=== PATIENT | male | born 1945 | race Hispanic/Latino ===

== ENCOUNTER 2016-12-16 15:04 | Inpatient (IN) | payer MEDICARE ==
[2016-12-16 15:08] VITALS: BMI 33.2
--- NOTE | 2016-12-16 15:22 | C.PDOC ---
History Of Present Illness 71 y/o male sent by Elaine presents to the ED with complains of chronic back pain. Pt had MRI today, concern for possible dissection of a 3.8cm aortic aneurysm. Pain is unchanged from usual pain, occasionally radiates to right leg. Pt denies incontinence, numbness/weakness, abdominal pain, vomiting or any other complaints. Pt history long standing HTN, well controlled with medications. He is also being treated for a paronychia of the right 5th finger. Time Seen by Provider: 12/16/16 15:11 Chief Complaint (Nursing): Abdominal Pain History Per: Patient History/Exam Limitations: no limitations Onset/Duration Of Symptoms: Days Current Symptoms Are (Timing): Still Present Severity: Moderate Quality Of Discomfort: "Pain" Associated Symptoms: Back Pain. denies: Fever, Vomiting Exacerbating Factors: None Alleviating Factors: None Recent travel outside of the [place]: No Past Medical History Reviewed: Historical Data, Nursing Documentation, Vital Signs Vital Signs: Last Vital Signs Temp 97.4 F L 12/16/16 15:08 Pulse 65 12/16/16 18:16 Resp 17 12/16/16 18:16 BP 149/75 12/16/16 18:16 Pulse Ox 98 12/16/16 18:28 Family History: States: Unknown Family Hx Review Of Systems Except As Marked, All Systems Reviewed And Found Negative. Constitutional: Negative for: Fever Cardiovascular: Negative for: Chest Pain Respiratory: Negative for: Shortness of Breath Gastrointestinal: Negative for: Vomiting, Abdominal Pain Genitourinary: Negative for: Incontinence Musculoskeletal: Positive for: Back Pain (radiating to right leg) Neurological: Negative for: Weakness, Numbness Physical Exam - Physical Exam Appears: Non-toxic, No Acute Distress Skin: Warm, Dry, No Rash Head: Atraumatic, Normacephalic Nose: Normal Neck: Normal ROM, Supple Chest: Symmetrical Cardiovascular: Rhythm Regular, No Murmur Respiratory: Normal Breath Sounds, No Accessory Muscle Use, No Rales, No Rhonchi , No Wheezing Gastrointestinal/Abdominal: No Tenderness, No Mass, Other (rotund) Back: No Vertebral Tenderness, No Paraspinal Tenderness Extremity: Bilateral: Atraumatic Pulses: Left Femoral: Normal, Right Femoral: Normal, Left Dorsalis Pedis: Normal , Right Dorsalis Pedis: Normal Neurological/Psych: Oriented x3, Normal Speech, Normal Motor, Normal Sensation ED Course And Treatment - Laboratory Results Result Diagrams: 12/16/16 15:34 12/16/16 15:34 Lab Interpretation: No Acute Changes O2 Sat by Pulse Oximetry: 98 (on room air) Pulse Ox Interpretation: Normal - CT Scan/US CT angio chest abd and pelvis Other Rad Studies (CT/US): Read By Radiologist, Radiology Report Reviewed CT/US Interpretation: Accession No. : [id number]. Patient Name / ID : SAMY WILKERSON P / [id number]. Exam Date : 12/16/2016 16:58:18 ( Approved ). Study Comment : Sex / Age : M / 71Y. Creator : Tatianna Alcantar. Dictator : Tatianna Alcantar. Auto Engine Mechanic : Glue Specialty Supervisor : Tatianna Alcantar. Approver2 : Report Date : 12/16/2016 18:03:29. My Comment : . PROCEDURE: CT Angiography Chest, Abdomen and Pelvis with and without intravenous contrast. HISTORY: MRI done today, ?dissection abdominal aorta. COMPARISON: None. TECHNIQUE: Contiguous axial images of the chest, abdomen and pelvis were obtained in the phase of aortic enhancement. A noncontrast enhanced CT of the chest was also obtained to evaluate for possible intramural thrombus. Coronal and sagittal reformats were generated. IV dose administered: 100 mL of Visipaque 320. Radiation dose: Total exam DLP = 3006.17 mGy-cm. This CT exam was performed using one or more of the following dose reduction techniques: Automated exposure control, adjustment of the mA and/or kV according to patient size, and/or use of iterative reconstruction technique. FINDINGS: CT ANGIOGRAPHY OF THE CHEST WITH & WITHOUT CONTRAST: AORTA (CHEST AND ABDOMEN): There is aortic dissection extending from the mid descending thoracic aorta to the right common iliac artery. There is suspicious for calcified wall aneurysm at the proximal to mid descending thoracic aorta measures approximately 3.5 centimeter in the largest transverse diameter seen just above the beginning of the dissection. The celiac axis, superior mesenteric artery, inferior mesenteric artery are patent and originate from the true lumen of the aorta. The right renal artery is also patent and originates from the true lumen. The left renal artery originates from the false lumen of the abdominal aorta. The abdominal aortic dissection extending to the right common iliac artery/the right common iliac bifurcation. The left common iliac artery originates from the true lumen.The bilateral external iliac arteries are patent and opacified with contrast. LUNGS: No evidence of acute pulmonary disease. Prominent accessory azygos vein and fissure seen. MEDIASTINUM: Mild to moderate cardiomegaly. Diffuse coronary artery calcifications seen. The main pulmonary artery is normal in size. No evidence of lymphadenopathy. No evidence of pericardial effusion. LYMPH NODES: Unremarkable. PLEURA: Unremarkable. No pneumothorax. No pleural fluid. BONES: Unremarkable. OTHER FINDINGS: None. CT ANGIOGRAPHY OF THE ABDOMEN AND PELVIS WITH CONTRAST: LIVER: No evidence of acute pathology. Moderate fatty liver infiltration is also noted. GALLBLADDER AND BILE DUCTS: Gallstones seen without evidence of acute cholecystitis. PANCREAS: Unremarkable. No gross lesion or ductal dilatation. SPLEEN: Unremarkable. ADRENALS: Unremarkable. No mass. KIDNEYS AND URETERS: Nonspecific bilateral perinephric stranding seen more prominent on the left side. The left kidney demonstrates slight delayed enhancement compared to the right. No evidence of hydronephrosis. VASCULATURE: Abdominal aortic dissection is noted as described above. The IVC is normal in caliber. . STOMACH AND BOWEL: Unremarkable. No obstruction. No gross mural thickening. Colonic diverticulosis seen without evidence of diverticulitis. APPENDIX: No evidence of appendicitis. PERITONEUM: Unremarkable. No free fluid. No free air. LYMPH NODES: Unremarkable. No enlarged lymph nodes. BLADDER: Unremarkable. REPRODUCTIVE: Multiple seeds are seen in the prostate. The prostate is mildly enlarged. BONES: No acute fracture. OTHER FINDINGS: None. IMPRESSION: Large aortic dissection extending from the descending thoracic aorta to the right common iliac bifurcation. Focal aneurysmal changes versus large mural thickening/thrombosis seen at the mid descending thoracic aorta contains peripheral calcification. The left renal artery originates from the false lumen of the aorta. Slight delayed enhancement of the left kidney compared to the right. Findings were discussed with the emergency room physician at the time of this interpretation. - Physician Consult Information Time Consulting Physician Contacted: 18:00 Physician Contacted: Nikky Henry Outcome Of Conversation: CT report discussed. she requests call to Dr Watt. Message left on voice mail. 7:[address] Watt in ED. CT results reviewed and case discussed with Dr Henry. Patient to be admitted for BP control and further evaluation. Medical Decision Making Medical Decision Making: Plan: CTA chest, labs Disposition - Disposition Disposition: HOSPITALIZED Disposition Time: 19:22 Condition: STABLE - POA Present On Arrival: None - Clinical Impression Clinical Impression: Aortic dissection, thoracoabdominal - Scribe Statement The provider has reviewed the documentation as recorded by the Drew Ruby Provider Attestation: All medical record entries made by the Drew were at my direction and personally dictated by me. I have reviewed the chart and agree that the record accurately reflects my personal performance of the history, physical exam, medical decision making, and the department course for this patient. I have also personally directed, reviewed, and agree with the discharge instructions and disposition.
--- NOTE | 2016-12-16 15:23 | C.PDOC ---
Time Seen by Provider: 12/16/16 15:11 Chief Complaint (Nursing): Abdominal Pain Past Medical History Vital Signs: Last Vital Signs Temp 97.4 F L 12/16/16 15:08 Pulse 74 12/16/16 15:08 Resp 20 12/16/16 15:08 BP 157/80 H 12/16/16 15:08 Pulse Ox 98 12/16/16 15:08 ED Course And Treatment O2 Sat by Pulse Oximetry: 98
[2016-12-16 15:43] LABS: BASO % 0.6 % (0.0-2.0); EOS # 0.4 K/uL (0.0-0.7); EOS % 7.2 % (0.0-4.0); HEMATOCRIT 44.4 % (35.0-51.0); LYMPH # 1.1 K/uL (1.0-4.3); LYMPH % 19.9 % (20.0-40.0); MEAN CELL VOLUME 90.8 fL (80.0-94.0); MEAN CORPUSCULAR HEMOGLOBIN 30.2 pg (27.0-31.0); MEAN CORPUSCULAR HGB CONC 33.3 g/dL (33.0-37.0); MEAN PLATELET VOLUME 8.5 fL (7.2-11.7); MONO # 0.6 K/uL (0.0-0.8); MONO % 10.5 % (0.0-10.0); NRBC % 0.1 % (0.0-2.0); RED CELL DISTRIBUTION WIDTH 13.9 % (11.5-14.5); WHITE BLOOD COUNT 5.5 K/uL (4.8-10.8)
[2016-12-16] MEDS ORDERED: ceFAZolin IV 1 gm in Dextrose 50 ML IVPB ONE (15:46)
[2016-12-16] MEDS ORDERED: Sodium Chloride 0.9% 1,000 ML IV ONE (15:46)
[2016-12-16 15:54] LABS: CHLORIDE 101 mmol/L (98-107); SODIUM 140 mmol/L (132-148)
[2016-12-16 15:55] LABS: POTASSIUM 5.1 mmol/L (3.6-5.2)
[2016-12-16 15:57] LABS: ALB/GLOB RATIO 1.7 (1.0-2.1); ALKALINE PHOSPHATASE 69 U/L (38-126); ALT/SGPT 21 U/L (21-72); AST/SGOT 32 U/L (17-59); BILIRUBIN,TOTAL 0.7 mg/dL (0.2-1.3); BLOOD UREA NITROGEN 17 mg/dL (9-20); CARBON DIOXIDE 23 mmol/L (22-30); GFR AFRICAN-AMERICAN > 60; GLUCOSE,RANDOM 167 mg/dL (75-110); TOTAL PROTEIN 7.6 g/dL (6.3-8.3)
[2016-12-16] MEDS ORDERED: Iodixanol 320 MG/ML 100 ML BOTTLE IV ONE (16:10)
[2016-12-16] MEDS ORDERED: ceFAZolin 1 gm FROZEN Premix 50 ML IVPB ONE (16:17)
[2016-12-16] MEDS ORDERED: Sodium Chloride 0.9% 1,000 ML ONE (16:18)
--- NOTE | 2016-12-16 18:05 | CT ---
PROCEDURE: CT Angiography Chest, Abdomen and Pelvis with and without intravenous contrast HISTORY: MRI done today, ?dissection abdominal aorta COMPARISON: None. TECHNIQUE: Contiguous axial images of the chest, abdomen and pelvis were obtained in the phase of aortic enhancement. A noncontrast enhanced CT of the chest was also obtained to evaluate for possible intramural thrombus. Coronal and sagittal reformats were generated. IV dose administered: 100 mL of Visipaque 320 Radiation dose: Total exam DLP = 3006.17 mGy-cm. This CT exam was performed using one or more of the following dose reduction techniques: Automated exposure control, adjustment of the mA and/or kV according to patient size, and/or use of iterative reconstruction technique. FINDINGS: CT ANGIOGRAPHY OF THE CHEST WITH & WITHOUT CONTRAST: AORTA (CHEST AND ABDOMEN): There is aortic dissection extending from the mid descending thoracic aorta to the right common iliac artery. There is suspicious for calcified wall aneurysm at the proximal to mid descending thoracic aorta measures approximately 3.5 centimeter in the largest transverse diameter seen just above the beginning of the dissection. The celiac axis, superior mesenteric artery, inferior mesenteric artery are patent and originate from the true lumen of the aorta. The right renal artery is also patent and originates from the true lumen. The left renal artery originates from the false lumen of the abdominal aorta The abdominal aortic dissection extending to the right common iliac artery/the right common iliac bifurcation. The left common iliac artery originates from the true lumen.The bilateral external iliac arteries are patent and opacified with contrast. LUNGS: No evidence of acute pulmonary disease. Prominent accessory azygos vein and fissure seen. MEDIASTINUM: Mild to moderate cardiomegaly. Diffuse coronary artery calcifications seen. The main pulmonary artery is normal in size. No evidence of lymphadenopathy. No evidence of pericardial effusion. LYMPH NODES: Unremarkable. PLEURA: Unremarkable. No pneumothorax. No pleural fluid. BONES: Unremarkable. OTHER FINDINGS: None. CT ANGIOGRAPHY OF THE ABDOMEN AND PELVIS WITH CONTRAST: LIVER: No evidence of acute pathology. Moderate fatty liver infiltration is also noted. GALLBLADDER AND BILE DUCTS: Gallstones seen without evidence of acute cholecystitis. PANCREAS: Unremarkable. No gross lesion or ductal dilatation. SPLEEN: Unremarkable. ADRENALS: Unremarkable. No mass. KIDNEYS AND URETERS: Nonspecific bilateral perinephric stranding seen more prominent on the left side. The left kidney demonstrates slight delayed enhancement compared to the right. No evidence of hydronephrosis. VASCULATURE: Abdominal aortic dissection is noted as described above. The IVC is normal in caliber. . STOMACH AND BOWEL: Unremarkable. No obstruction. No gross mural thickening. Colonic diverticulosis seen without evidence of diverticulitis. APPENDIX: No evidence of appendicitis. PERITONEUM: Unremarkable. No free fluid. No free air. LYMPH NODES: Unremarkable. No enlarged lymph nodes. BLADDER: Unremarkable. REPRODUCTIVE: Multiple seeds are seen in the prostate. The prostate is mildly enlarged. BONES: No acute fracture. OTHER FINDINGS: None. IMPRESSION: Large aortic dissection extending from the descending thoracic aorta to the right common iliac bifurcation. Focal aneurysmal changes versus large mural thickening/thrombosis seen at the mid descending thoracic aorta contains peripheral calcification. The left renal artery originates from the false lumen of the aorta. Slight delayed enhancement of the left kidney compared to the right. Findings were discussed with the emergency room physician at the time of this interpretation.
[2016-12-16 20:28] VITALS: RESP 20
[2016-12-16] MEDS ORDERED: ceFAZolin IV 1 gm in Dextrose 50 ML IVPB SCH (21:45)
[2016-12-16] MEDS ORDERED: Sodium Chloride 0.45% 1,000 ML IV SCH (22:00)
[2016-12-16] MEDS: (Novolin R) Insulin Human Regular 100 units/ml vial SC SCH (22:07)
[2016-12-16] MEDS: Acetylcysteine 20% Inhal Soln (4ml) PO SCH (22:16)
--- NOTE | 2016-12-16 22:49 | CON ---
DATE: 12/16/2016 An emergency consultation requested by Dr. Henry. The patient is a 71-year-old man seen in the Emergency Room with a history of back pain. After some imaging tests were done for evaluation of this, it was felt that he had an aortic dissection. For th is reason he was referred to the Emergency Room. The patient has recently travelled. He said the pa in has been present for a while. There has been no particular increase in its severity today, krystian r, a CAT scan subsequently done of his chest and abdomen showed that there was an aortic dissection b eginning after the subclavian artery, and descending down to the level of the common iliacs. Detaile d films were available, and it showed that there was still good perfusion of his mesenteric vessels, the kidneys, and his lower extremities. His social history, review of systems, and family history are all noted. I am not going to repeat em in the consultation. The system review was carried out particularly to cardiac, neurological problems, as well all the oth er systems that are required. PHYSICAL EXAMINATION: Blood pressure is the same both arms, approximately 150/90, pulse rate is 72, afebrile. The nurses have recorded the rest of the vital signs. Examination shows there is no palpable aneurysm. There are strong popliteal pulses, but no feelings of an aneurysm. He has pedal pulses palpable in his feet without any signs of ischemia. So my impression is the patient has a chronic aortic dissection, but he has back pain which recently led to its discovery. My recommendation is that this be monitored. He should eventually be seen by a cardiothoracic surgeo n for evaluation for treatment, although I do not think there is any indication for treatment at pres ent. Will monitor the patient for 24 hours and make appropriate referrals. This was discussed with the Emergency Room staff and with Dr. Henry. Wei Watt Jr., MD cc: 56 TT: 12/16/2016 22:48:44 Confirmation # [id number] Dictation # [id number] kathy
[2016-12-16] MEDS: ceFAZolin IV 1 gm in Dextrose 50 ML IVPB SCH (23:56)
[2016-12-17 00:24] VITALS: O2SAT 96
[2016-12-17 01:05] LABS: RBC URINE < 1 /hpf (0-3); URINE BILIRUBIN NEGATIVE (NEGATIVE); URINE BLOOD NEGATIVE (NEGATIVE); URINE COLOR Straw (YELLOW); URINE GLUCOSE (UA) NORMAL (Normal); URINE KETONE NEGATIVE (NEGATIVE); URINE LEUKOCYTE ESTERASE NEG Leu/uL (Negative); URINE PROTEIN NEGATIVE (NEGATIVE); URINE UROBILINOGEN NORMAL mg/dL (0.2-1.0); WBC URINE 1 /hpf (0-5)
[2016-12-17 07:06] LABS: CHLORIDE 102 mmol/L (98-107)
[2016-12-17 07:07] LABS: POTASSIUM 4.1 mmol/L (3.6-5.2); SODIUM 138 mmol/L (132-148)
[2016-12-17 07:09] LABS: ALB/GLOB RATIO 1.7 (1.0-2.1); ALKALINE PHOSPHATASE 60 U/L (38-126); AST/SGOT 20 U/L (17-59); BILIRUBIN,TOTAL 0.6 mg/dL (0.2-1.3); BLOOD UREA NITROGEN 14 mg/dL (9-20); CARBON DIOXIDE 24 mmol/L (22-30); CHOLESTEROL 131 mg/dL (0-199); GFR AFRICAN-AMERICAN > 60; GLUCOSE,RANDOM 148 mg/dL (75-110)
[2016-12-17 07:10] LABS: ALT/SGPT 21 U/L (21-72)
[2016-12-17 07:12] LABS: BASO % 0.7 % (0.0-2.0); EOS # 0.4 K/uL (0.0-0.7); EOS % 8.3 % (0.0-4.0); HEMATOCRIT 41.4 % (35.0-51.0); LYMPH # 1.1 K/uL (1.0-4.3); LYMPH % 23.2 % (20.0-40.0); MEAN CELL VOLUME 89.9 fL (80.0-94.0); MEAN CORPUSCULAR HEMOGLOBIN 29.9 pg (27.0-31.0); MEAN CORPUSCULAR HGB CONC 33.3 g/dL (33.0-37.0); MEAN PLATELET VOLUME 8.6 fL (7.2-11.7); MONO # 0.5 K/uL (0.0-0.8); MONO % 10.6 % (0.0-10.0); RED CELL DISTRIBUTION WIDTH 13.6 % (11.5-14.5); WHITE BLOOD COUNT 4.6 K/uL (4.8-10.8)
[2016-12-17] MEDS: (Novolin R) Insulin Human Regular 100 units/ml vial SC SCH ×2 (08:06→12:02)
[2016-12-17 09:29] VITALS: PULSE 20
[2016-12-17] MEDS ORDERED: Enoxaparin 40 mg Syringe SC SCH (10:00)
[2016-12-17] MEDS: Acetylcysteine 20% Inhal Soln (4ml) PO SCH (10:49)
[2016-12-17] MEDS: ceFAZolin IV 1 gm in Dextrose 50 ML IVPB SCH ×2 (10:54→16:16)
--- NOTE | 2016-12-17 11:11 | CP.PCM.PN ---
Subjective - Date & Time of Evaluation Date of Evaluation: 12/17/16 Time of Evaluation: 10:45 - Subjective Subjective: H&P dictated #[id number] Objective - Vital Signs/Intake and Output Vital Signs (last 24 hours): Temp Pulse Resp BP Pulse Ox 97.7 F 20 L 20 155/75 H 96 12/17/16 08:00 12/17/16 08:00 12/17/16 08:00 12/17/16 08:00 12/17/16 08:00 Intake and Output: 12/17/16 12/17/16 06:59 18:59 Intake Total 200 Output Total 500 Balance -300 - Medications Medications: Current Medications Amlodipine Besylate (Norvasc) 10 mg PO DAILY [facility] Last Admin: 12/17/16 10:48 Dose: 10 mg Enoxaparin Sodium (Lovenox) 40 mg SC DAILY [facility] Last Admin: 12/17/16 10:48 Dose: 40 mg Glipizide (Glucotrol) 10 mg PO BID [facility] Last Admin: 12/17/16 10:49 Dose: 10 mg Sodium Chloride (Sodium Chloride 0.45%) 1,000 mls @ 60 mls/hr IV .[id number] [facility] Last Admin: 12/16/16 22:09 Dose: 60 mls/hr Cefazolin Sodium/Dextrose (Ancef Iv 1 Gm Duplex) 50 mls @ 100 mls/hr IVPB Q8H [facility] Last Admin: 12/17/16 10:54 Dose: 100 mls/hr Insulin Human Regular (Novolin R) 0 unit SC ACHS [facility] Last Admin: 12/17/16 08:06 Dose: Not Given Metoprolol Tartrate (Lopressor) 50 mg PO BID [facility] Last Admin: 12/17/16 10:48 Dose: 50 mg Sitagliptin Phosphate (Januvia) 50 mg PO DAILY [facility] Last Admin: 12/17/16 10:48 Dose: 50 mg - Labs Labs: 12/17/16 06:54 12/17/16 06:54
--- NOTE | 2016-12-17 15:08 | CARD ---
APPROVED REPORT EXAM: Two-dimensional and M-mode echocardiogram with Doppler and color Doppler. Other Information Quality : GoodRhythm : NSR INDICATION LV Function: RISK FACTORS Hypertension M-Mode DIMENSIONS RVDd2.27 (2.1-3.2cm)Left Atrium (MM)3.63 (2.5-4.0cm) IVSd1.65 (0.7-1.1cm)Aortic Root3.59 (2.2-3.7cm) LVDd5.19 (4.0-5.6cm)Aortic Cusp Exc.2.10 (1.5-2.0cm) PWd1.07 (0.7-1.1cm)FS (%) 40 % LVDs3.09 (2.0-3.8cm)LVEF (%)71 (>50%) Aortic Valve AI P 1/2 [id number] Mitral Valve MV E Bcabbctl12.8cm/sMV A Fmgfmoln576.4cm/sE/A ratio0.7 TDI E/Lateral E'0.0E/Medial E'0.0 Tricuspid Valve TR Peak Sbgzccnj620jb/sTR Peak Gr.[id number] LEFT VENTRICLE The left ventricle is normal size. There is normal left ventricular wall thickness. The left ventricular systolic function is normal. The left ventricular ejection fraction is within the normal range. There is normal LV segmental wall motion. Transmitral Doppler flow pattern is Grade I-abnormal relaxation pattern. RIGHT VENTRICLE The right ventricle is normal size. The right ventricular systolic function is normal. ATRIA The left atrial index is mildly increased. The right atrium size is normal. AORTIC VALVE The aortic valve is mildly calcified but opens well. There is mild aortic regurgitation. MITRAL VALVE The mitral valve is normal in structure. There is no mitral valve regurgitation noted. TRICUSPID VALVE The tricuspid valve is normal in structure. There is trace tricuspid regurgitation. PULMONIC VALVE The pulmonary valve is normal in structure. GREAT VESSELS The aortic root is normal size. The aortic root displays mild to moderate sclerocalcific changes. The IVC is normal in size and collapses >50% with inspiration. PERICARDIAL EFFUSION There is no pericardial effusion. <Conclusion> The left ventricular systolic function is normal. There is normal LV segmental wall motion. Transmitral Doppler flow pattern is Grade I-abnormal relaxation pattern. The right ventricular systolic function is normal. There is mild aortic regurgitation. The aortic root displays mild to moderate sclerocalcific changes. There is no pericardial effusion.
--- NOTE | 2016-12-17 16:25 | CP.PCM.PN ---
Subjective - Date & Time of Evaluation Date of Evaluation: 12/17/16 Time of Evaluation: 16:23 - Subjective Subjective: fu note patient 's condition has improved no acute pain discussed fu with patient re [facility] Dr Morales (contact info given)re long tem management of problem. i do not think he requires any intervention but he must be evaluated at / by someone who treats this regularly Objective - Vital Signs/Intake and Output Vital Signs (last 24 hours): Temp Pulse Resp BP Pulse Ox 97.7 F 20 L 20 155/75 H 96 12/17/16 08:00 12/17/16 08:00 12/17/16 08:00 12/17/16 08:00 12/17/16 08:00 Intake and Output: 12/17/16 12/17/16 06:59 18:59 Intake Total 200 Output Total 500 Balance -300 - Medications Medications: Current Medications Amlodipine Besylate (Norvasc) 10 mg PO DAILY [facility] Last Admin: 12/17/16 10:48 Dose: 10 mg Enoxaparin Sodium (Lovenox) 40 mg SC DAILY [facility] Last Admin: 12/17/16 10:48 Dose: Not Given Glipizide (Glucotrol) 10 mg PO BID [facility] Last Admin: 12/17/16 10:49 Dose: 10 mg Sodium Chloride (Sodium Chloride 0.45%) 1,000 mls @ 60 mls/hr IV .[id number] [facility] Last Admin: 12/16/16 22:09 Dose: 60 mls/hr Cefazolin Sodium/Dextrose (Ancef Iv 1 Gm Duplex) 50 mls @ 100 mls/hr IVPB Q8H [facility] Last Admin: 12/17/16 16:16 Dose: 100 mls/hr Insulin Human Regular (Novolin R) 0 unit SC ACHS [facility] Last Admin: 12/17/16 12:02 Dose: Not Given Metoprolol Tartrate (Lopressor) 50 mg PO BID [facility] Last Admin: 12/17/16 10:48 Dose: 50 mg Sitagliptin Phosphate (Januvia) 50 mg PO DAILY [facility] Last Admin: 12/17/16 10:48 Dose: 50 mg - Labs Labs: 12/17/16 06:54 12/17/16 06:54
[2016-12-17 17:18] VITALS: BP 138/77; TEMP 98.8
--- NOTE | 2016-12-17 17:28 | HP ---
CHIEF COMPLAINT: Chronic low back pain getting worse with abnormal MRI results. HISTORY OF PRESENT ILLNESS: The patient is a 71-year-old male with a history of hypertension, diabetes mellitus, hyperlipidemia, osteoarthritis, history of prostate CA status post seed implants, status post radiation therapy, obesity, status post atypical tuberculosis with Mycobacterium avium complex in 2009, came into the ED for abnormal MRI results to rule out aortic dissection. He is known to me for many years for chronic low back pain. He was referred to have MRI done to rule out spinal stenosis. MRI showed high grade spinal stenosis with an L4-L5, L3-L4 and L5-S1 regions and on MRI also, there was a suspicion for abdominal aortic dissection. The patient was referred to the ED. In the ED , the patient underwent CT angio of the thorax, abdomen and pelvis which showed aortic dissection from descending aorta and the thorax at bifurcation in the iliacs and the patient is being admitted for observation. When I examined, the patient denies any headache, dizziness. Denies any chest pain, shortness of breath or wheezing. Denies any nausea, vomiting, abdominal pain, diarrhea or constipation. Denies any urinary complaints. Denies any leg pains or leg cramps. His back pain has been there for many years. No new symptoms. PAST MEDICAL HISTORY: As described, hypertension, diabetes mellitus, hyperlipidemia, osteoarthritis, spinal stenosis, history of atypical TB with Mycobacterium avium complex, status post therapy, history of prostate CA status post radiation therapy and seed implants. PAST SURGICAL HISTORY: Underwent removal of cyst from the jaw, tonsillectomy as a child. FAMILY HISTORY: Diabetes and hypertension in father, brother had kidney cancer. PERSONAL HISTORY: He is a , lives alone having no children. SOCIAL HISTORY: He drinks alcohol socially, he smokes marijuana intermittently before. REVIEW OF SYSTEMS: As described in history of present illness. MEDICATIONS: Include glipizide 10 mg p.o. b.i.d., Januvia 100 mg daily, metoprolol 25 mg daily, amlodipine 10 mg daily, lisinopril 20 mg b.i.d., Zocor 20 mg daily, metformin 500 mg tablets 3 in the morning and 2 in the evening. ALLERGIES: HE IS ALLERGIC TO PINEAPPLE AND SEASONAL ALLERGIES. PHYSICAL EXAMINATION: GENERAL: Elderly obese male lying in bed in no acute distress. VITAL SIGNS: Blood pressure 155/75, pulse 64, respirations 20, temperature 97.7 degrees Fahrenheit, O2 sats 96% on room air. HEENT: Pupils equal, round, reacting to light and accommodation. Extraocular muscles intact. No icterus, no pallor, no oral thrush. No pharyngeal congestion. NECK: Supple. No JVD, no thyromegaly. CHEST: Moving equally bilaterally on respiration. LUNGS: Clear to auscultation. Bilateral vesicular breath sounds. No wheezing , no rhonchi. CARDIOVASCULAR: S1, S2 present, regular. ABDOMEN: Soft, nontender. Bowel sounds present. No guarding, no rigidity, no rebound tenderness noted. CENTRAL NERVOUS SYSTEM: Alert, awake, oriented x 3. No focal deficits noted. EXTREMITIES: No edema. Palpable peripheral pulses. LABORATORY DATA: Done from this morning, WBC 4.6, hemoglobin 13.8, hematocrit 41.4, platelets 210. Sodium 138, potassium 4.1, chloride 102, bicarb 24, BUN 14 , creatinine 1.0, glucose 159, calcium 9.0, total bilirubin 0.6, AST 20, ALT 21 , alkaline phosphatase 60. Cardiac enzymes x 2 negative. Triglycerides 193. Cholesterol 131, LDL 55, HDL 53. UA negative. CT scan of the chest, abdomen and pelvis shows large aortic dissection extending from the descending thoracic aorta to the right common iliac bifurcation, focal aneurysmal changes versus large mural thickening was seen in the mid descending thoracic aorta calcification. The left renal artery was originated from the false lumen of the aorta. Echocardiogram done, results pending. ASSESSMENT AND PLAN: Elderly male with past medical history of hypertension, diabetes mellitus, hyperlipidemia, history of prostate cancer status post radiation therapy and seed implants admitted for descending aortic dissection. The patient was evaluated by vascular surgery. 1. Aortic dissection, stable. The patient is asymptomatic at the present time. 2. Hypertension. 3. Diabetes mellitus. 4. Hyperlipidemia. 5. Cellulitis of the left finger. 6. Hyperlipidemia. 7. History of prostate cancer status post radiation therapy and seed implants. 8. Remote history of atypical tuberculosis with Mycobacterium avium complex. PLAN: The patient is being admitted to cardiac telemetry. Will do serial cardiac enzymes, echo is done, results pending. His blood pressure is slightly high. We will continue with his home medications of Norvasc 10 mg p.o. daily, Lopressor 25 mg daily, lisinopril 20 mg p.o. b.i.d. His Accu-Cheks are fair. Continue with Januvia 100 mg daily, glipizide 10 mg p.o. b.i.d., metformin 1500 mg in the morning and 1000 mg in the evening. We will give Ancef 1 gram IV every 8 hours. We will obtain cardiology evaluation. Discussed with vascular surgery Dr. Watt who will be referring the patient to [facility] for further evaluation and recommendation for aortic dissection. If cleared by cardiology, we will plan discharging the patient home this evening. Nikky Henry MD cc: [id number] TT: 12/17/2016 17:27:42 cn MTDD
--- NOTE | 2017-02-13 10:50 | CARD ---
APPROVED REPORT EKG Measurement Heart [id number] <Conclusion> Normal sinus rhythm Right bundle branch block Abnormal ECG
== END 2016-12-17 19:05 | disposition hospice, home (50) | DRG 301 ==
LOC: C.ER 15:04 → C.9E 19:24 → C.5T 19:41
PROVIDERS: ADMIT Internal Medicine; ATTEND Internal Medicine
DX: I71.03 Dissection of thoracoabdominal aorta (principal); E11.9 Type 2 diabetes mellitus without complications; I10 Essential (primary) hypertension; E78.5 Hyperlipidemia, unspecified; L03.012 Cellulitis of left finger; G89.29 Other chronic pain; M48.06 Spinal stenosis, lumbar region; F12.90 Cannabis use, unspecified, uncomplicated; Z80.51 Family history of malignant neoplasm of kidney; Z82.49 Family history of ischemic heart disease and other diseases of the circulatory system; Z85.46 Personal history of malignant neoplasm of prostate; Z83.3 Family history of diabetes mellitus; Z92.3 Personal history of irradiation